=== PATIENT | male | born 1970 | race Two or more races ===

== ENCOUNTER 2020-03-25 20:58 | Inpatient (IN) | payer MEDICAID ==
[~2020-03-25] VITALS: Ht 172.7 cm; Wt 140.8 kg
--- NOTE | 2020-03-25 21:35 | NUR ---
PT REPORTS SWELLING TO L FOOT X 1 WEEK. HAD A TELEPHONE CONSULT WITH HIS PCP AND WAS PRESCRIBED INDOMETHACIN & CLINDAMYCIN FOR SUSPECTED GOUT. SWELLING HAS SINCE GOTTEN WORSE. PT NOTED TO BE SOB WITH EXERTION, TACHYPNEIC. STATES, "I'M ALWAYS SOB BECAUSE OF MY WEIGHT." DENIES HX OF PE OR DVT. STATES HE'S HOPING TO GET A BASTRIC BYPASS SURGERY. HX INSULIN DEPENDENT DM.
[2020-03-25] MEDS ORDERED: ASPI-515 PO (21:36)
[2020-03-25] MEDS ORDERED: LISINOPRIL (21:36)
[2020-03-25] MEDS ORDERED: METF500T27 PO (21:36)
[2020-03-25] MEDS ORDERED: LISINOPRIL PO (21:37)
[2020-03-25] MEDS ORDERED: INSU100I34 SC (21:42)
[2020-03-25] MEDS ORDERED: SIMVASTATIN PO (21:42)
[2020-03-25] MEDS ORDERED: SODIUM CHLORIDE 0.9% 1,000ML IVBOLUS ONE (22:00)
[2020-03-25] MEDS ORDERED: SODIUM CHLORIDE FLUSH 10ML SYR IVF ONE (22:00)
[2020-03-25] MEDS ORDERED: ACETAMINOPHEN 325 MG TABLET PO ONE (22:00)
--- NOTE | 2020-03-25 22:05 | NUR ---
REPORT FROM GAETANO MANRIQUE. PT TAKEN TO ULTRASOUND AT THIS TIME.
[2020-03-25] MEDS ORDERED: AMPICILLIN/SULBACTAM 3 GM in SODIUM CHLORIDE 0.9% 100 ML IV ONE (23:00)
[2020-03-25] MEDS ORDERED: VANCOMYCIN PER PHARMACY MC PRN (23:00)
[2020-03-25 23:03] LABS: BASOPHILS % (AUTO) 1 % (0-1); EOSINOPHILS % (AUTO) 3 % (1-7); LYMPHOCYTES % (AUTO) 20 % (22-44); MEAN CORPUSCULAR HEMOGLOBIN 30.6 pg (27.5-34.5); MEAN PLATELET VOLUME 8.9 fL (7.4-10.4); MONOCYTES % (AUTO) 10 % (2-9); NEUTROPHILS % (AUTO) 67 % (42-75); PLATELET COUNT 278 x10^3/uL (130-400); RED BLOOD COUNT 4.39 x10^6/uL (4.38-5.82); RED CELL DISTRIBUTION WIDTH 13.6 % (9.4-14.8)
[2020-03-25 23:07] LABS: MD NO
[2020-03-25 23:08] LABS: HCT (SEDRATE) 39.8 % (39.2-51.8)
[2020-03-25 23:12] LABS: ALANINE AMINOTRANSFERASE 22 U/L (12-78); ANION GAP 3 mmol/L (5-15); CALCIUM 8.1 mg/dL (8.5-10.1); CHLORIDE 103 mmol/L (98-107); CREATININE 1.05 mg/dL (0.7-1.3)
[2020-03-25 23:19] LABS: ALKALINE PHOSPHATASE 76 U/L (45-117); BILIRUBIN,TOTAL 0.2 mg/dL (0.2-1.0); TOTAL PROTEIN 7.8 g/dL (6.4-8.2); TROPONIN I < 0.015 ng/mL (0.000-0.045)
[2020-03-25] MEDS ORDERED: ACETAMINOPHEN 325 MG TABLET ONE (23:22)
--- NOTE | 2020-03-25 23:53 | NUR ---
PT UPDATED ON PLAN OF CARE. VERBALIZES UNDERSTANDING, DENIES ANY FURTHER NEEDS OR CONCERNS AT THIS TIME. CALL LIGHT IN REACH.
--- NOTE | 2020-03-26 00:19 | NUR ---
PT UP TO RESTROOM, REQUIRES NO ASSISTANCE. GAIT STRONG AND STEADY. DENIES ANY FURTHER NEEDS OR CONCERNS, CALL LIGHT IN REACH, REGISTRATION AT BEDSIDE AT THIS TIME.
--- NOTE | 2020-03-26 00:38 | NUR ---
REPORT TO ADILSON BRASHER RN. PT UPDATED ON PLAN OF CARE. DENIES ANY NEEDS, AWAITING TRANSPORT AT THIS TIME, CALL LIGHT IN REACH
[2020-03-26] MEDS ORDERED: ONDANSETRON 2MG/ML, 2ML IVPush PRN (01:00)
[2020-03-26] MEDS ORDERED: GABAPENTIN 300 MG CAPSULE PO PRN (01:00)
[2020-03-26] MEDS ORDERED: VANCOMYCIN 2,800 MG in SODIUM CHLORIDE 0.9% 500 ML IV ONE (01:00)
[2020-03-26] MEDS ORDERED: VANCOMYCIN PER PHARMACY MC PRN (01:00)
[2020-03-26] MEDS ORDERED: hydrALAzine 20 MG/ML, 1ML IVPush PRN (01:00)
[2020-03-26 01:19] VITALS: BP 127/67
[2020-03-26] MEDS ORDERED: PHARMACOKINETIC MONITORING MC PRN (01:30)
[2020-03-26] MEDS: INSULIN LISPRO 100 UNITS/ML, PEN SQ-INSULIN SCH ×5 (02:08→20:15)
[2020-03-26] MEDS: ENOXAPARIN 30 MG/0.3 ML SQ SCH ×2 (02:08→13:56)
[2020-03-26] MEDS: INSULIN GLARGINE 100 UNITS/ML, PEN SQ-INSULIN SCH ×3 (02:09→20:14)
[2020-03-26] MEDS: AMPICILLIN/SULBACTAM 3 GM in SODIUM CHLORIDE 0.9% 100 ML IV SCH ×3 (04:47→18:02)
[2020-03-26] MEDS: LISINOPRIL 5 MG TABLET PO SCH (08:00)
[2020-03-26] MEDS: SENNA/DOCUSATE TABLET PO SCH (08:00)
[2020-03-26 08:04] VITALS: BP 120/82
[2020-03-26] MEDS ORDERED: VANCOMYCIN 2,800 MG in SODIUM CHLORIDE 0.9% 500 ML IV SCH (13:00)
[2020-03-26] MEDS: VANCOMYCIN 2,200 MG in SODIUM CHLORIDE 0.9% 500 ML IV SCH (14:05)
[2020-03-26 14:10] VITALS: BP 112/75
[2020-03-26] MEDS ORDERED: GADOTERATE 10 MMOL/20 ML VIAL ONE (16:00)
[2020-03-26] MEDS ORDERED: GADOTERATE 5 MMOL/10 ML VIAL ONE (16:00)
[2020-03-26 20:09] VITALS: BP 129/78
[2020-03-26] MEDS: ATORVASTATIN 40 MG TABLET PO SCH (20:13)
[2020-03-27] MEDS: ENOXAPARIN 30 MG/0.3 ML SQ SCH ×2 (00:55→14:52)
[2020-03-27] MEDS: AMPICILLIN/SULBACTAM 3 GM in SODIUM CHLORIDE 0.9% 100 ML IV SCH ×4 (00:55→17:56)
[2020-03-27 01:01] VITALS: BP 122/78
[2020-03-27] MEDS: VANCOMYCIN 2,200 MG in SODIUM CHLORIDE 0.9% 500 ML IV SCH ×2 (02:28→15:01)
[2020-03-27 06:29] VITALS: BP 119/74
[2020-03-27] MEDS: INSULIN LISPRO 100 UNITS/ML, PEN SQ-INSULIN SCH ×4 (07:00→20:13)
[2020-03-27] MEDS: SENNA/DOCUSATE TABLET PO SCH (07:28)
[2020-03-27] MEDS: LISINOPRIL 5 MG TABLET PO SCH (07:28)
[2020-03-27] MEDS: INSULIN GLARGINE 100 UNITS/ML, PEN SQ-INSULIN SCH ×2 (07:29→20:13)
[2020-03-27 14:51] VITALS: BP 117/77
[2020-03-27] MEDS: ATORVASTATIN 40 MG TABLET PO SCH (20:12)
[2020-03-27 20:30] VITALS: BP 156/85
[2020-03-27] MEDS: MELATONIN 5 MG TABLET PO PRN (23:03)
[2020-03-28] MEDS: AMPICILLIN/SULBACTAM 3 GM in SODIUM CHLORIDE 0.9% 100 ML IV SCH ×4 (00:19→19:14)
[2020-03-28 01:01] VITALS: BP 114/73
[2020-03-28] MEDS: VANCOMYCIN 2,200 MG in SODIUM CHLORIDE 0.9% 500 ML IV SCH ×2 (04:20→16:23)
[2020-03-28] MEDS: ENOXAPARIN 30 MG/0.3 ML SQ SCH ×2 (04:20→16:23)
[2020-03-28 06:26] VITALS: BP 117/77
[2020-03-28] MEDS: INSULIN LISPRO 100 UNITS/ML, PEN SQ-INSULIN SCH ×4 (07:00→20:29)
[2020-03-28] MEDS: INSULIN GLARGINE 100 UNITS/ML, PEN SQ-INSULIN SCH ×2 (07:52→20:28)
[2020-03-28] MEDS: SENNA/DOCUSATE TABLET PO SCH (07:53)
[2020-03-28] MEDS: LISINOPRIL 5 MG TABLET PO SCH (07:53)
[2020-03-28 13:55] VITALS: BP 131/82
[2020-03-28] MEDS: ACETAMINOPHEN 325 MG TABLET PO PRN (16:28)
[2020-03-28 19:30] VITALS: BP 143/81
[2020-03-28] MEDS: ATORVASTATIN 40 MG TABLET PO SCH (20:28)
[2020-03-29 00:49] VITALS: BP 123/80
[2020-03-29] MEDS: AMPICILLIN/SULBACTAM 3 GM in SODIUM CHLORIDE 0.9% 100 ML IV SCH ×2 (01:06→07:50)
[2020-03-29] MEDS: VANCOMYCIN 2,200 MG in SODIUM CHLORIDE 0.9% 500 ML IV SCH (04:18)
[2020-03-29] MEDS: ENOXAPARIN 30 MG/0.3 ML SQ SCH ×2 (04:18→16:00)
[2020-03-29] MEDS: ACETAMINOPHEN 325 MG TABLET PO PRN (04:36)
[2020-03-29] MEDS: INSULIN LISPRO 100 UNITS/ML, PEN SQ-INSULIN SCH ×4 (07:00→20:37)
[2020-03-29 07:47] VITALS: BP 131/89
[2020-03-29] MEDS: SENNA/DOCUSATE TABLET PO SCH (07:49)
[2020-03-29] MEDS: INSULIN GLARGINE 100 UNITS/ML, PEN SQ-INSULIN SCH ×2 (07:49→20:37)
[2020-03-29] MEDS: LISINOPRIL 5 MG TABLET PO SCH (07:50)
[2020-03-29 12:16] VITALS: BP 142/89
[2020-03-29] MEDS: AMOXICILLIN/CLAV 875-125MG TABLET PO SCH (20:36)
[2020-03-29] MEDS: ATORVASTATIN 40 MG TABLET PO SCH (20:36)
[2020-03-29 20:39] VITALS: BP 142/83
[2020-03-29] MEDS: MELATONIN 5 MG TABLET PO PRN (22:28)
[2020-03-30 01:47] VITALS: BP 115/68
[2020-03-30] MEDS: ENOXAPARIN 30 MG/0.3 ML SQ SCH (04:43)
[2020-03-30 05:21] LABS: HCT (SEDRATE) 38.2 % (39.2-51.8)
[2020-03-30 05:30] LABS: BASOPHILS % (AUTO) 0 % (0-1); EOSINOPHILS % (AUTO) 3 % (1-7); LYMPHOCYTES % (AUTO) 25 % (22-44); MEAN CORPUSCULAR HEMOGLOBIN 30.6 pg (27.5-34.5); MEAN CORPUSCULAR HGB CONC 33.9 g/dL (33.2-36.2); MEAN PLATELET VOLUME 8.3 fL (7.4-10.4); MONOCYTES % (AUTO) 10 % (2-9); NEUTROPHILS % (AUTO) 62 % (42-75); PLATELET COUNT 294 x10^3/uL (130-400); RED BLOOD COUNT 4.25 x10^6/uL (4.38-5.82); RED CELL DISTRIBUTION WIDTH 13.6 % (9.4-14.8)
[2020-03-30 05:50] LABS: MD NO
[2020-03-30 05:55] LABS: ANION GAP 6 mmol/L (5-15); CALCIUM 8.5 mg/dL (8.5-10.1); CHLORIDE 104 mmol/L (98-107); CREATININE 0.85 mg/dL (0.7-1.3)
[2020-03-30 07:14] VITALS: BP 121/79
[2020-03-30] MEDS: INSULIN LISPRO 100 UNITS/ML, PEN SQ-INSULIN SCH ×2 (07:36→11:48)
[2020-03-30] MEDS: SENNA/DOCUSATE TABLET PO SCH (09:17)
[2020-03-30] MEDS: LISINOPRIL 5 MG TABLET PO SCH (09:17)
[2020-03-30] MEDS: AMOXICILLIN/CLAV 875-125MG TABLET PO SCH (09:17)
[2020-03-30] MEDS: INSULIN GLARGINE 100 UNITS/ML, PEN SQ-INSULIN SCH (09:24)
[2020-03-30] MEDS ORDERED: AMOX1TAB12 PO (09:26)
[2020-03-30] MEDS ORDERED: ATOR40TA78 PO (09:26)
[2020-03-30] MEDS ORDERED: GABA300C PO (09:26)
== END 2020-03-30 15:17 | disposition home or self-care (01) | DRG 603 ==
LOC: ED 03-26 00:20 → EDIP 03-26 00:43 → 3N 03-26 01:01 → DCLOUNGE 03-30 14:43
PROVIDERS: ADMIT Family Medicine; ATTEND Family Medicine
DX: L03.116 Cellulitis of left lower limb (principal); E66.2 Morbid (severe) obesity with alveolar hypoventilation; Z68.42 Body mass index [BMI] 45.0-49.9, adult; E87.1 Hypo-osmolality and hyponatremia; E11.40 Type 2 diabetes mellitus with diabetic neuropathy, unspecified; E11.621 Type 2 diabetes mellitus with foot ulcer; E11.65 Type 2 diabetes mellitus with hyperglycemia; E78.5 Hyperlipidemia, unspecified; I11.9 Hypertensive heart disease without heart failure; L97.519 Non-pressure chronic ulcer of other part of right foot with unspecified severity; M10.9 Gout, unspecified; M84.375A Stress fracture, left foot, initial encounter for fracture; R60.0 Localized edema; R70.0 Elevated erythrocyte sedimentation rate; R79.82 Elevated C-reactive protein (CRP); Z79.4 Long term (current) use of insulin; Z83.3 Family history of diabetes mellitus; Z72.89 Other problems related to lifestyle
CPT/HCPCS: 36415; 73630; 84145; 96374; 96375; 99285; A9575; 71045; 80048; 80053; 80202; 82330; 82962; 83036; 83605; 83880; 84484; 85025; 85651; 86140; 87040; 93005; G0378; J0295; J1650; J3370; J1815; J7030; J7040

== ENCOUNTER 2020-10-12 19:38 | Emergency (ER) | payer MEDICAID ==
[~2020-10-12] VITALS: Ht 172.7 cm; Wt 141.8 kg
[~2020-10-12 19:38] MED LIST: AMOX1TAB12 PO; ASPI-963 PO; ATOR40TA78 PO; GABA300C PO; INSU100I34 SC; LISINOPRIL; LISINOPRIL PO; METF500T27 PO; SIMVASTATIN PO
[2020-10-12 19:46] VITALS: BP 107/71
[2020-10-12 21:22] LABS: BASOPHILS % (AUTO) 1 % (0-1); EOSINOPHILS % (AUTO) 2 % (1-7); LYMPHOCYTES % (AUTO) 23 % (22-44); MEAN PLATELET VOLUME 8.3 fL (7.4-10.4); MONOCYTES % (AUTO) 9 % (2-9); NEUTROPHILS % (AUTO) 65 % (42-75); PLATELET COUNT 459 x10^3/uL (130-400); RED CELL DISTRIBUTION WIDTH 14.7 % (9.4-14.8)
[2020-10-12 21:25] LABS: ANION GAP 9 mmol/L (5-15); CALCIUM 8.7 mg/dL (8.5-10.1); CHLORIDE 97 mmol/L (98-107); CREATININE 0.95 mg/dL (0.7-1.3)
[2020-10-12 21:26] LABS: HCT (SEDRATE) 39.1 % (39.2-51.8)
== END 2020-10-12 22:38 | disposition left against medical advice (07) ==
LOC: ED 20:00
DX: S91.302A Unspecified open wound, left foot, initial encounter (principal); X58.XXXA Exposure to other specified factors, initial encounter; Y93.89 Activity, other specified; Y92.89 Other specified places as the place of occurrence of the external cause; Y99.8 Other external cause status
CPT/HCPCS: 36415; 80048; 85025; 85651; 86140; 99284

== ENCOUNTER 2020-10-17 06:54 | Inpatient (IN) | payer MEDICAID ==
[~2020-10-17] VITALS: Ht 172.7 cm; Wt 149.7 kg
--- NOTE | 2020-10-17 07:17 | NUR ---
PT walked back from triage with chief complaint of worsening left foot wound for past month. Hx DM. Pt reports abx from doctor but unable to remember which one.
[2020-10-17] MEDS ORDERED: VANCOMYCIN 2,500 MG in SODIUM CHLORIDE 0.9% 500 ML IV ONE (08:00)
[2020-10-17] MEDS ORDERED: PIPERACILLIN/TAZO 4.5 GM in SODIUM CHLORIDE 0.9% 100 ML IVPB ONE (08:00)
[2020-10-17] MEDS ORDERED: VANCOMYCIN PER PHARMACY MC ONE (08:00)
[2020-10-17] MEDS ORDERED: SODIUM CHLORIDE FLUSH 10ML SYR IVF ONE (08:00)
[2020-10-17 08:26] LABS: BASOPHILS % (AUTO) 1 % (0-1); EOSINOPHILS % (AUTO) 1 % (1-7); LYMPHOCYTES % (AUTO) 19 % (22-44); MONOCYTES % (AUTO) 9 % (2-9); NEUTROPHILS % (AUTO) 70 % (42-75); PLATELET COUNT 421 x10^3/uL (130-400); RED BLOOD COUNT 4.23 x10^6/uL (4.38-5.82); RED CELL DISTRIBUTION WIDTH 14.5 % (9.4-14.8)
--- NOTE | 2020-10-17 08:35 | NUR ---
PT unable to provide urine sample. Pt back resting in bed, call light in reach
[2020-10-17 08:36] LABS: ALANINE AMINOTRANSFERASE 12 U/L (12-78); ALBUMIN 2.4 g/dL (3.4-5.0); ANION GAP 6 mmol/L (5-15); CALCIUM 8.4 mg/dL (8.5-10.1); CHLORIDE 97 mmol/L (98-107); CREATININE 0.87 mg/dL (0.7-1.3)
[2020-10-17 08:39] LABS: ALKALINE PHOSPHATASE 66 U/L (45-117); BILIRUBIN,TOTAL 0.2 mg/dL (0.2-1.0); TOTAL PROTEIN 8.8 g/dL (6.4-8.2)
[2020-10-17 09:16] LABS: MICROSCOPIC AUTO
--- NOTE | 2020-10-17 10:20 | NUR ---
PT RESTING IN BED, CALL LIGHT IN REACH
[2020-10-17] MEDS ORDERED: SODIUM CHLORIDE FLUSH 10ML SYR IVF PRN (12:00)
[2020-10-17] MEDS ORDERED: ONDANSETRON 2MG/ML, 2ML IVPush PRN (13:30)
[2020-10-17] MEDS ORDERED: morphine SULFATE 10 MG/ML, 1ML IVPush PRN (13:30)
[2020-10-17] MEDS ORDERED: BISACODYL 10 MG SUPP PR PRN (13:30)
[2020-10-17] MEDS ORDERED: hydrALAzine 20 MG/ML, 1ML IVPush PRN (13:30)
[2020-10-17] MEDS ORDERED: PROMETHAZINE 25 MG/ML, 1ML IM PRN (13:30)
[2020-10-17] MEDS ORDERED: ONDANSETRON ODT 4 MG PO PRN (13:30)
[2020-10-17] MEDS ORDERED: ENOXAPARIN 40 MG/0.4 ML ONE (14:21)
[2020-10-17] MEDS: ENOXAPARIN 40 MG/0.4 ML SQ SCH (14:22)
--- NOTE | 2020-10-17 16:04 | NUR ---
Report called to Mariella SALTER
[2020-10-17] MEDS ORDERED: VANCOMYCIN PER PHARMACY MC PRN (17:00)
[2020-10-17] MEDS: PIPERACILLIN/TAZO 3.375 GM in DEXTROSE 5% 50 ML IV SCH (17:14)
[2020-10-17] MEDS ORDERED: PHARMACOKINETIC CONSULTATION MC ONE (17:30)
[2020-10-17] MEDS ORDERED: PHARMACOKINETIC MONITORING MC PRN (17:30)
[2020-10-17 19:19] VITALS: BP 104/72
[2020-10-17] MEDS: VANCOMYCIN 2,100 MG in SODIUM CHLORIDE 0.9% 500 ML IV SCH (21:15)
[2020-10-17] MEDS ORDERED: GABAPENTIN 300 MG CAPSULE PO PRN (22:00)
[2020-10-17] MEDS: INSULIN LISPRO 100 UNITS/ML, PEN SQ-INSULIN SCH (22:17)
[2020-10-17] MEDS: ATORVASTATIN 40 MG TABLET PO SCH (22:18)
[2020-10-17] MEDS ORDERED: MELATONIN 5 MG TABLET PO SCH (22:30)
[2020-10-17] MEDS: MELATONIN 5 MG TABLET PO PRN (22:33)
[2020-10-18] MEDS: PIPERACILLIN/TAZO 3.375 GM in DEXTROSE 5% 50 ML IV SCH ×4 (01:16→22:34)
[2020-10-18 02:25] VITALS: BP 114/73
[2020-10-18 06:14] LABS: HCT (SEDRATE) 34.8 % (39.2-51.8)
[2020-10-18 06:21] LABS: BASOPHILS % (AUTO) 1 % (0-1); EOSINOPHILS % (AUTO) 2 % (1-7); LYMPHOCYTES % (AUTO) 22 % (22-44); MEAN CORPUSCULAR HEMOGLOBIN 29.6 pg (27.5-34.5); MEAN CORPUSCULAR HGB CONC 33.5 g/dL (33.2-36.2); MEAN PLATELET VOLUME 8.2 fL (7.4-10.4); MONOCYTES % (AUTO) 9 % (2-9); NEUTROPHILS % (AUTO) 66 % (42-75); PLATELET COUNT 364 x10^3/uL (130-400); RED CELL DISTRIBUTION WIDTH 14.7 % (9.4-14.8)
[2020-10-18 06:26] LABS: ALBUMIN 2.1 g/dL (3.4-5.0); ANION GAP 8 mmol/L (5-15); CALCIUM 8.4 mg/dL (8.5-10.1); CHLORIDE 97 mmol/L (98-107)
[2020-10-18 06:30] VITALS: BP 128/83
[2020-10-18 06:38] LABS: ALANINE AMINOTRANSFERASE 13 U/L (12-78); ALKALINE PHOSPHATASE 58 U/L (45-117); BILIRUBIN,TOTAL 0.3 mg/dL (0.2-1.0); CHOL/HDL RATIO 4.1; CHOLESTEROL, TOTAL 149 mg/dL (140-239); CREATININE 0.89 mg/dL (0.7-1.3); HDL CHOL % 24 % (26-37); HDL CHOLESTEROL (DIRECT) 36 mg/dL (40-60); LDL CHOLESTEROL,CALCULATED 96 mg/dL (54-169); LDL/HDL RATIO 2.7 (0.5-3.0); TOTAL PROTEIN 8.3 g/dL (6.4-8.2); TRIGLYCERIDES 87 mg/dL (50-200); VLDL CHOLESTEROL 17 mg/dL (0-25)
[2020-10-18] MEDS: INSULIN LISPRO 100 UNITS/ML, PEN SQ-INSULIN SCH ×4 (08:20→20:57)
[2020-10-18] MEDS: ASPIRIN 81 MG TABLET EC PO SCH (08:20)
[2020-10-18] MEDS ORDERED: GADOTERATE 7.5 MMOL/15ML SYR ONE (08:54)
[2020-10-18] MEDS: VANCOMYCIN 2,100 MG in SODIUM CHLORIDE 0.9% 500 ML IV SCH ×2 (12:12→23:28)
[2020-10-18] MEDS: INSULIN GLARGINE 100 UNITS/ML, PEN SQ-INSULIN SCH (15:18)
[2020-10-18] MEDS: ENOXAPARIN 40 MG/0.4 ML SQ SCH (17:17)
[2020-10-18 19:10] VITALS: BP 111/77
[2020-10-18] MEDS: ATORVASTATIN 40 MG TABLET PO SCH (20:56)
[2020-10-18] MEDS: MELATONIN 5 MG TABLET PO PRN (22:34)
[2020-10-19 00:17] VITALS: BP 128/79
[2020-10-19] MEDS: PIPERACILLIN/TAZO 3.375 GM in DEXTROSE 5% 50 ML IV SCH ×4 (04:30→23:25)
[2020-10-19 06:09] LABS: BASOPHILS % (AUTO) 0 % (0-1); EOSINOPHILS % (AUTO) 2 % (1-7); LYMPHOCYTES % (AUTO) 25 % (22-44); MEAN CORPUSCULAR HEMOGLOBIN 29.4 pg (27.5-34.5); MEAN CORPUSCULAR HGB CONC 33.4 g/dL (33.2-36.2); MONOCYTES % (AUTO) 10 % (2-9); NEUTROPHILS % (AUTO) 63 % (42-75); PLATELET COUNT 360 x10^3/uL (130-400); RED BLOOD COUNT 3.74 x10^6/uL (4.38-5.82); RED CELL DISTRIBUTION WIDTH 14.7 % (9.4-14.8)
[2020-10-19 06:19] LABS: CHLORIDE 99 mmol/L (98-107)
[2020-10-19 06:31] LABS: ANION GAP 7 mmol/L (5-15); CALCIUM 8.4 mg/dL (8.5-10.1); CREATININE 0.84 mg/dL (0.7-1.3)
[2020-10-19 07:35] VITALS: BP 108/73
[2020-10-19] MEDS: ASPIRIN 81 MG TABLET EC PO SCH (08:35)
[2020-10-19] MEDS: INSULIN LISPRO 100 UNITS/ML, PEN SQ-INSULIN SCH ×4 (08:41→21:00)
[2020-10-19] MEDS: INSULIN GLARGINE 100 UNITS/ML, PEN SQ-INSULIN SCH (08:43)
[2020-10-19 12:26] VITALS: BP 125/78
[2020-10-19] MEDS: ENOXAPARIN 40 MG/0.4 ML SQ SCH (17:05)
[2020-10-19] MEDS: VANCOMYCIN 2,000 MG in SODIUM CHLORIDE 0.9% 500 ML IV SCH (18:03)
[2020-10-19] MEDS ORDERED: BUPIVACAINE/PF 0.25% ONE (18:30)
[2020-10-19] MEDS ORDERED: LIDOCAINE/PF 1%, 30ML ONE (18:31)
[2020-10-19] MEDS ORDERED: MIDAZOLAM 1 MG/ML, 2ML ONE (19:20)
[2020-10-19] MEDS ORDERED: FENTANYL PF 250 MCG/5ML ONE (19:21)
[2020-10-19] MEDS ORDERED: SUCCINYLCHOLINE 20 MG/ML, 10ML ONE (19:52)
[2020-10-19] MEDS ORDERED: PROPOFOL 10 MG/ML, 20ML ONE (19:52)
[2020-10-19] MEDS ORDERED: ONDANSETRON 2MG/ML, 2ML ONE (19:52)
[2020-10-19] MEDS ORDERED: ONDANSETRON 2MG/ML, 2ML IVPush PRN (20:00)
[2020-10-19] MEDS ORDERED: MEPERIDINE/PF 25MG/0.5ML IVPush PRN (20:00)
[2020-10-19] MEDS ORDERED: LABETALOL 5MG/ML, 20ML IV PRN (20:00)
[2020-10-19] MEDS ORDERED: HYDROmorphone 1 MG/ML, 1ML INJ IVPush PRN (20:00)
[2020-10-19] MEDS ORDERED: hydrALAzine 20 MG/ML, 1ML IV PRN (20:00)
[2020-10-19] MEDS ORDERED: DIAZEPAM 5 MG/ML, 2ML IVPush PRN (20:00)
[2020-10-19] MEDS ORDERED: OXYcodone 5 MG/5 ML ORAL.SOL UDC PO PRN (20:00)
[2020-10-19] MEDS ORDERED: FENTANYL PF 100 MCG/2ML IV PRN (20:00)
[2020-10-19 21:10] VITALS: BP 121/80
[2020-10-19] MEDS: ATORVASTATIN 40 MG TABLET PO SCH (21:54)
[2020-10-19] MEDS: MELATONIN 5 MG TABLET PO PRN (23:25)
[2020-10-20 00:30] VITALS: BP 150/88
[2020-10-20 03:52] VITALS: BP 111/73
[2020-10-20] MEDS: PIPERACILLIN/TAZO 3.375 GM in DEXTROSE 5% 50 ML IV SCH ×4 (05:31→23:31)
[2020-10-20] MEDS: ENOXAPARIN 40 MG/0.4 ML SQ SCH ×2 (05:32→16:53)
[2020-10-20] MEDS: ASPIRIN 81 MG TABLET EC PO SCH (08:20)
[2020-10-20] MEDS: INSULIN LISPRO 100 UNITS/ML, PEN SQ-INSULIN SCH ×4 (08:20→22:07)
[2020-10-20] MEDS: INSULIN GLARGINE 100 UNITS/ML, PEN SQ-INSULIN SCH (08:21)
[2020-10-20 10:16] VITALS: BP 127/80
[2020-10-20] MEDS: VANCOMYCIN 2,000 MG in SODIUM CHLORIDE 0.9% 500 ML IV SCH (11:28)
[2020-10-20 14:01] VITALS: BP 119/76
[2020-10-20 19:16] VITALS: BP 126/83
[2020-10-20] MEDS: ATORVASTATIN 40 MG TABLET PO SCH (22:07)
[2020-10-20] MEDS: MELATONIN 5 MG TABLET PO PRN (23:32)
[2020-10-21 00:54] VITALS: BP 99/61
[2020-10-21] MEDS: PIPERACILLIN/TAZO 3.375 GM in DEXTROSE 5% 50 ML IV SCH (05:18)
[2020-10-21] MEDS: VANCOMYCIN 2,000 MG in SODIUM CHLORIDE 0.9% 500 ML IV SCH (06:01)
[2020-10-21 06:24] LABS: CHLORIDE 103 mmol/L (98-107)
[2020-10-21] MEDS: ENOXAPARIN 40 MG/0.4 ML SQ SCH ×2 (06:24→18:19)
[2020-10-21 06:31] LABS: ANION GAP 5 mmol/L (5-15); CALCIUM 8.3 mg/dL (8.5-10.1); CREATININE 1.66 mg/dL (0.7-1.3); VANCOMYCIN,TROUGH 20.1 mcg/mL (5.0-10.0)
[2020-10-21 09:35] VITALS: BP 137/87
[2020-10-21] MEDS: ASPIRIN 81 MG TABLET EC PO SCH (09:38)
[2020-10-21] MEDS: INSULIN LISPRO 100 UNITS/ML, PEN SQ-INSULIN SCH ×4 (09:38→20:52)
[2020-10-21] MEDS: INSULIN GLARGINE 100 UNITS/ML, PEN SQ-INSULIN SCH (09:39)
[2020-10-21] MEDS ORDERED: ERTAPENEM 1 GM in SODIUM CHLORIDE 0.9% 50 ML IV SCH (10:00)
[2020-10-21] MEDS ORDERED: DAPTOMYCIN 900 MG in SODIUM CHLORIDE 0.9% 100 ML IVPB SCH (14:00)
[2020-10-21 15:54] VITALS: BP 146/93
[2020-10-21 20:44] VITALS: BP 140/66
[2020-10-21] MEDS: MELATONIN 5 MG TABLET PO PRN (22:45)
[2020-10-22 02:45] VITALS: BP 118/81
[2020-10-22 06:10] LABS: ANION GAP 5 mmol/L (5-15); CALCIUM 8.5 mg/dL (8.5-10.1); CHLORIDE 104 mmol/L (98-107); CREATININE 1.41 mg/dL (0.7-1.3)
[2020-10-22] MEDS: ENOXAPARIN 40 MG/0.4 ML SQ SCH ×2 (06:37→18:24)
[2020-10-22] MEDS: INSULIN LISPRO 100 UNITS/ML, PEN SQ-INSULIN SCH ×4 (07:00→21:16)
[2020-10-22 07:25] VITALS: BP 126/75
[2020-10-22] MEDS: INSULIN GLARGINE 100 UNITS/ML, PEN SQ-INSULIN SCH (08:37)
[2020-10-22] MEDS: ASPIRIN 81 MG TABLET EC PO SCH (08:37)
[2020-10-22] MEDS: AMPICILLIN/SULBACTAM 3 GM in SODIUM CHLORIDE 0.9% 100 ML IV SCH ×3 (10:50→22:24)
[2020-10-22 13:06] VITALS: BP 115/69
[2020-10-22 20:16] VITALS: BP 122/79
[2020-10-22] MEDS: MELATONIN 5 MG TABLET PO PRN (22:23)
[2020-10-23 03:27] VITALS: BP 115/71
[2020-10-23] MEDS: AMPICILLIN/SULBACTAM 3 GM in SODIUM CHLORIDE 0.9% 100 ML IV SCH ×4 (03:59→23:20)
[2020-10-23 05:53] LABS: BASOPHILS % (AUTO) 1 % (0-1); EOSINOPHILS % (AUTO) 3 % (1-7); LYMPHOCYTES % (AUTO) 19 % (22-44); MEAN CORPUSCULAR HEMOGLOBIN 29.4 pg (27.5-34.5); MEAN CORPUSCULAR HGB CONC 33.3 g/dL (33.2-36.2); MEAN PLATELET VOLUME 7.7 fL (7.4-10.4); MONOCYTES % (AUTO) 10 % (2-9); NEUTROPHILS % (AUTO) 67 % (42-75); PLATELET COUNT 313 x10^3/uL (130-400); RED BLOOD COUNT 3.91 x10^6/uL (4.38-5.82); RED CELL DISTRIBUTION WIDTH 15.1 % (9.4-14.8)
[2020-10-23 05:54] LABS: HCT (SEDRATE) 34.1 % (39.2-51.8)
[2020-10-23 06:10] LABS: CHLORIDE 102 mmol/L (98-107)
[2020-10-23 06:27] LABS: ALANINE AMINOTRANSFERASE 18 U/L (12-78); ALBUMIN 2.2 g/dL (3.4-5.0); ALKALINE PHOSPHATASE 52 U/L (45-117); ANION GAP 6 mmol/L (5-15); BILIRUBIN,TOTAL 0.3 mg/dL (0.2-1.0); CALCIUM 8.8 mg/dL (8.5-10.1); CREATINE KINASE, TOTAL 40 U/L (39-308); CREATININE 1.38 mg/dL (0.7-1.3); TOTAL PROTEIN 8.4 g/dL (6.4-8.2)
[2020-10-23] MEDS: ENOXAPARIN 40 MG/0.4 ML SQ SCH ×2 (06:30→18:08)
[2020-10-23 07:31] VITALS: BP 118/73
[2020-10-23] MEDS: ASPIRIN 81 MG TABLET EC PO SCH (08:44)
[2020-10-23] MEDS: ACETAMINOPHEN 325 MG TABLET PO PRN (08:44)
[2020-10-23] MEDS: INSULIN GLARGINE 100 UNITS/ML, PEN SQ-INSULIN SCH (08:45)
[2020-10-23] MEDS: INSULIN LISPRO 100 UNITS/ML, PEN SQ-INSULIN SCH ×4 (08:46→23:21)
[2020-10-23 13:45] VITALS: BP 135/80
[2020-10-23 18:39] VITALS: BP 137/88
[2020-10-23] MEDS: MELATONIN 5 MG TABLET PO PRN (23:28)
[2020-10-24 01:05] VITALS: BP 110/68
[2020-10-24] MEDS: AMPICILLIN/SULBACTAM 3 GM in SODIUM CHLORIDE 0.9% 100 ML IV SCH ×3 (05:20→18:21)
[2020-10-24] MEDS: ENOXAPARIN 40 MG/0.4 ML SQ SCH ×3 (05:21→20:11)
[2020-10-24] MEDS: ACETAMINOPHEN 325 MG TABLET PO PRN (05:30)
[2020-10-24 07:16] VITALS: BP 101/65
[2020-10-24] MEDS: INSULIN GLARGINE 100 UNITS/ML, PEN SQ-INSULIN SCH (08:28)
[2020-10-24] MEDS: ASPIRIN 81 MG TABLET EC PO SCH (08:29)
[2020-10-24] MEDS: INSULIN LISPRO 100 UNITS/ML, PEN SQ-INSULIN SCH ×4 (08:29→20:24)
[2020-10-24 13:46] VITALS: BP 125/80
[2020-10-24 18:35] VITALS: BP 123/80
[2020-10-25] MEDS: AMPICILLIN/SULBACTAM 3 GM in SODIUM CHLORIDE 0.9% 100 ML IV SCH ×5 (00:13→22:39)
[2020-10-25 03:37] VITALS: BP 109/62
[2020-10-25 05:38] LABS: BASOPHILS % (AUTO) 1 % (0-1); EOSINOPHILS % (AUTO) 3 % (1-7); LYMPHOCYTES % (AUTO) 21 % (22-44); MEAN CORPUSCULAR HEMOGLOBIN 29.8 pg (27.5-34.5); MEAN CORPUSCULAR HGB CONC 33.8 g/dL (33.2-36.2); MONOCYTES % (AUTO) 11 % (2-9); NEUTROPHILS % (AUTO) 65 % (42-75); PLATELET COUNT 320 x10^3/uL (130-400); RED CELL DISTRIBUTION WIDTH 14.7 % (9.4-14.8)
[2020-10-25 05:44] LABS: ANION GAP 6 mmol/L (5-15); CALCIUM 8.6 mg/dL (8.5-10.1); CHLORIDE 105 mmol/L (98-107); CREATININE 1.49 mg/dL (0.7-1.3)
[2020-10-25 08:10] VITALS: BP 116/83
[2020-10-25] MEDS: ASPIRIN 81 MG TABLET EC PO SCH (09:00)
[2020-10-25] MEDS: INSULIN LISPRO 100 UNITS/ML, PEN SQ-INSULIN SCH ×4 (09:37→22:31)
[2020-10-25] MEDS: INSULIN GLARGINE 100 UNITS/ML, PEN SQ-INSULIN SCH (09:38)
[2020-10-25] MEDS ORDERED: FENTANYL PF 250 MCG/5ML ONE (15:03)
[2020-10-25] MEDS ORDERED: MIDAZOLAM 1 MG/ML, 2ML ONE (15:03)
[2020-10-25 15:16] VITALS: BP 136/89
[2020-10-25] MEDS ORDERED: CHLORHEXIDINE 15 ML UDC ONE (15:18)
[2020-10-25] MEDS ORDERED: CHLORHEXIDINE 15 ML UDC PO ONE (15:30)
[2020-10-25] MEDS: ENOXAPARIN 40 MG/0.4 ML SQ SCH (18:00)
[2020-10-25] MEDS ORDERED: VANCOMYCIN 1,000 MG ONE (18:00)
[2020-10-25] MEDS ORDERED: TRANEXAMIC ACID 100 MG/ML, 10ML ONE (18:09)
[2020-10-25] MEDS ORDERED: ALBUTEROL SULFATE 2.5 MG/3 ML NPPB PRN (18:30)
[2020-10-25] MEDS ORDERED: FENTANYL PF 100 MCG/2ML IV PRN (18:30)
[2020-10-25] MEDS ORDERED: OXYcodone 5 MG/5 ML ORAL.SOL UDC PO PRN (18:30)
[2020-10-25] MEDS ORDERED: PROMETHAZINE 25 MG/ML, 1ML IVPush PRN (18:30)
[2020-10-25] MEDS ORDERED: MIDAZOLAM 1 MG/ML, 2ML IV PRN (18:30)
[2020-10-25] MEDS ORDERED: ACETAMINOPHEN 325 MG TABLET PO PRN (18:30)
[2020-10-25] MEDS ORDERED: MEPERIDINE/PF 25MG/0.5ML IVPush PRN (18:30)
[2020-10-25] MEDS ORDERED: LABETALOL 5MG/ML, 20ML IV PRN (18:30)
[2020-10-25] MEDS ORDERED: BUPIVACAINE/PF 0.25% ONE ×2 (19:16)
[2020-10-25] MEDS ORDERED: SUCCINYLCHOLINE 20 MG/ML, 10ML ONE (19:17)
[2020-10-25] MEDS ORDERED: PROPOFOL 10 MG/ML, 20ML ONE (19:17)
[2020-10-25] MEDS ORDERED: ONDANSETRON 2MG/ML, 2ML ONE (19:17)
[2020-10-25] MEDS ORDERED: LIDOCAINE-MPF 2% ,5ML ONE ×2 (19:17)
[2020-10-25] MEDS ORDERED: PROMETHAZINE 25 MG/ML, 1ML ONE (19:32)
[2020-10-25 20:30] VITALS: BP 107/72
[2020-10-26 00:40] VITALS: BP 102/61
[2020-10-26 04:08] VITALS: BP 105/67
[2020-10-26] MEDS: AMPICILLIN/SULBACTAM 3 GM in SODIUM CHLORIDE 0.9% 100 ML IV SCH ×4 (04:52→23:09)
[2020-10-26] MEDS: ENOXAPARIN 40 MG/0.4 ML SQ SCH ×2 (05:44→18:23)
[2020-10-26 05:48] LABS: BASOPHILS % (AUTO) 1 % (0-1); EOSINOPHILS % (AUTO) 1 % (1-7); LYMPHOCYTES % (AUTO) 13 % (22-44); MEAN CORPUSCULAR HEMOGLOBIN 29.8 pg (27.5-34.5); MEAN CORPUSCULAR HGB CONC 33.7 g/dL (33.2-36.2); MEAN PLATELET VOLUME 7.5 fL (7.4-10.4); MONOCYTES % (AUTO) 10 % (2-9); NEUTROPHILS % (AUTO) 75 % (42-75); PLATELET COUNT 276 x10^3/uL (130-400); RED BLOOD COUNT 3.44 x10^6/uL (4.38-5.82); RED CELL DISTRIBUTION WIDTH 14.9 % (9.4-14.8)
[2020-10-26 05:59] LABS: ANION GAP 6 mmol/L (5-15); CALCIUM 8.1 mg/dL (8.5-10.1); CHLORIDE 100 mmol/L (98-107)
[2020-10-26 06:03] LABS: CREATININE 1.64 mg/dL (0.7-1.3)
[2020-10-26 07:14] VITALS: BP 119/76
[2020-10-26] MEDS: INSULIN GLARGINE 100 UNITS/ML, PEN SQ-INSULIN SCH (07:53)
[2020-10-26] MEDS: ASPIRIN 81 MG TABLET EC PO SCH (07:53)
[2020-10-26] MEDS: INSULIN LISPRO 100 UNITS/ML, PEN SQ-INSULIN SCH ×4 (07:54→23:32)
[2020-10-26] MEDS: ACETAMINOPHEN 325 MG TABLET PO PRN ×2 (08:29→13:25)
[2020-10-26] MEDS: OXYcodone IR 5MG TABLET PO PRN ×4 (08:30→23:34)
[2020-10-26 14:09] VITALS: BP_SYST 110; BP_SYST 135; BP_DIAS 57; BP_DIAS 72
[2020-10-26 19:19] VITALS: BP 138/80
[2020-10-26] MEDS: MELATONIN 5 MG TABLET PO PRN (23:33)
[2020-10-27 00:38] VITALS: BP 114/72
[2020-10-27] MEDS: AMPICILLIN/SULBACTAM 3 GM in SODIUM CHLORIDE 0.9% 100 ML IV SCH ×4 (05:02→23:39)
[2020-10-27] MEDS: ENOXAPARIN 40 MG/0.4 ML SQ SCH ×2 (05:14→17:57)
[2020-10-27] MEDS: OXYcodone IR 5MG TABLET PO PRN ×5 (05:23→23:40)
[2020-10-27 05:59] LABS: ANION GAP 7 mmol/L (5-15); CALCIUM 7.9 mg/dL (8.5-10.1); CHLORIDE 101 mmol/L (98-107); CREATININE 1.64 mg/dL (0.7-1.3)
[2020-10-27 07:24] VITALS: BP 103/67
[2020-10-27 08:36] VITALS: BP 102/68
[2020-10-27] MEDS: ASPIRIN 81 MG TABLET EC PO SCH (09:30)
[2020-10-27] MEDS: INSULIN LISPRO 100 UNITS/ML, PEN SQ-INSULIN SCH ×3 (09:30→16:52)
[2020-10-27] MEDS: INSULIN GLARGINE 100 UNITS/ML, PEN SQ-INSULIN SCH (09:31)
[2020-10-27 10:00] LABS: BASOPHILS % (AUTO) 0 % (0-1); EOSINOPHILS % (AUTO) 2 % (1-7); LYMPHOCYTES % (AUTO) 15 % (22-44); MEAN CORPUSCULAR HEMOGLOBIN 29.4 pg (27.5-34.5); MEAN CORPUSCULAR HGB CONC 33.1 g/dL (33.2-36.2); MONOCYTES % (AUTO) 10 % (2-9); NEUTROPHILS % (AUTO) 72 % (42-75); PLATELET COUNT 272 x10^3/uL (130-400); RED BLOOD COUNT 3.62 x10^6/uL (4.38-5.82); RED CELL DISTRIBUTION WIDTH 15.3 % (9.4-14.8)
[2020-10-27] MEDS: ACETAMINOPHEN 325 MG TABLET PO PRN (14:02)
[2020-10-27 14:06] VITALS: BP 111/69
[2020-10-27 20:21] VITALS: BP 125/79
[2020-10-27] MEDS: MELATONIN 5 MG TABLET PO PRN (23:40)
[2020-10-28] MEDS: OXYcodone IR 5MG TABLET PO PRN ×5 (00:32→21:52)
[2020-10-28] MEDS: INSULIN LISPRO 100 UNITS/ML, PEN SQ-INSULIN SCH ×5 (00:46→21:36)
[2020-10-28 01:44] VITALS: BP 114/82
[2020-10-28] MEDS: ENOXAPARIN 40 MG/0.4 ML SQ SCH ×2 (06:22→17:53)
[2020-10-28] MEDS: AMPICILLIN/SULBACTAM 3 GM in SODIUM CHLORIDE 0.9% 100 ML IV SCH ×4 (06:23→23:03)
[2020-10-28 07:08] VITALS: BP 104/70
[2020-10-28] MEDS: ACETAMINOPHEN 325 MG TABLET PO PRN (08:36)
[2020-10-28] MEDS: ASPIRIN 81 MG TABLET EC PO SCH (08:36)
[2020-10-28] MEDS: INSULIN GLARGINE 100 UNITS/ML, PEN SQ-INSULIN SCH (08:37)
[2020-10-28 12:34] VITALS: BP 121/63
[2020-10-28] MEDS: DOCUSATE 100 MG CAPSULE PO PRN ×2 (13:23→21:52)
[2020-10-28] MEDS: POLYETHYLENE GLYCOL 17 GM PACKET PO PRN (13:24)
[2020-10-28 19:42] VITALS: BP 122/82
[2020-10-28] MEDS: MELATONIN 5 MG TABLET PO PRN (23:03)
[2020-10-29 01:48] VITALS: BP 136/82
[2020-10-29] MEDS: OXYcodone IR 5MG TABLET PO PRN ×5 (02:55→20:29)
[2020-10-29] MEDS: DOCUSATE 100 MG CAPSULE PO PRN ×2 (02:55→20:29)
[2020-10-29] MEDS: AMPICILLIN/SULBACTAM 3 GM in SODIUM CHLORIDE 0.9% 100 ML IV SCH ×4 (05:13→23:24)
[2020-10-29] MEDS: ENOXAPARIN 40 MG/0.4 ML SQ SCH ×2 (06:03→17:23)
[2020-10-29] MEDS: INSULIN LISPRO 100 UNITS/ML, PEN SQ-INSULIN SCH ×4 (06:05→20:41)
[2020-10-29 06:27] VITALS: BP 115/71
[2020-10-29] MEDS: INSULIN GLARGINE 100 UNITS/ML, PEN SQ-INSULIN SCH (08:35)
[2020-10-29] MEDS: ASPIRIN 81 MG TABLET EC PO SCH (08:35)
[2020-10-29] MEDS: POLYETHYLENE GLYCOL 17 GM PACKET PO PRN (08:59)
[2020-10-29 13:58] VITALS: BP 101/62
[2020-10-29 19:42] VITALS: BP 136/85
[2020-10-29] MEDS: ACETAMINOPHEN 325 MG TABLET PO PRN (20:29)
[2020-10-29] MEDS: MELATONIN 5 MG TABLET PO PRN (23:24)
[2020-10-30 02:35] VITALS: BP 121/80
[2020-10-30] MEDS: ACETAMINOPHEN 325 MG TABLET PO PRN ×3 (02:47→20:47)
[2020-10-30] MEDS: OXYcodone IR 5MG TABLET PO PRN ×4 (02:47→20:47)
[2020-10-30] MEDS: AMPICILLIN/SULBACTAM 3 GM in SODIUM CHLORIDE 0.9% 100 ML IV SCH ×4 (05:24→23:26)
[2020-10-30] MEDS: ENOXAPARIN 40 MG/0.4 ML SQ SCH ×2 (05:25→17:55)
[2020-10-30 05:32] LABS: BASOPHILS % (AUTO) 0 % (0-1); EOSINOPHILS % (AUTO) 4 % (1-7); LYMPHOCYTES % (AUTO) 24 % (22-44); MEAN CORPUSCULAR HEMOGLOBIN 29.4 pg (27.5-34.5); MEAN CORPUSCULAR HGB CONC 33.4 g/dL (33.2-36.2); MONOCYTES % (AUTO) 10 % (2-9); NEUTROPHILS % (AUTO) 61 % (42-75); PLATELET COUNT 324 x10^3/uL (130-400); RED BLOOD COUNT 3.28 x10^6/uL (4.38-5.82); RED CELL DISTRIBUTION WIDTH 15.2 % (9.4-14.8)
[2020-10-30 05:41] LABS: ALANINE AMINOTRANSFERASE 16 U/L (12-78); ALBUMIN 2.1 g/dL (3.4-5.0); ANION GAP 3 mmol/L (5-15); CALCIUM 8.5 mg/dL (8.5-10.1); CHLORIDE 102 mmol/L (98-107); CREATININE 1.22 mg/dL (0.7-1.3)
[2020-10-30 05:50] LABS: ALKALINE PHOSPHATASE 49 U/L (45-117); BILIRUBIN,TOTAL 0.2 mg/dL (0.2-1.0); TOTAL PROTEIN 8.2 g/dL (6.4-8.2)
[2020-10-30 06:18] LABS: HCT (SEDRATE) 28.9 % (39.2-51.8)
[2020-10-30] MEDS: INSULIN LISPRO 100 UNITS/ML, PEN SQ-INSULIN SCH ×4 (06:38→21:01)
[2020-10-30 07:26] VITALS: BP 144/96
[2020-10-30] MEDS: ASPIRIN 81 MG TABLET EC PO SCH (09:05)
[2020-10-30] MEDS: INSULIN GLARGINE 100 UNITS/ML, PEN SQ-INSULIN SCH (09:06)
[2020-10-30 13:45] VITALS: BP 114/72
[2020-10-30 19:18] VITALS: BP 142/76
[2020-10-30] MEDS: DOCUSATE 100 MG CAPSULE PO PRN (21:01)
[2020-10-30] MEDS: MELATONIN 5 MG TABLET PO PRN (23:26)
[2020-10-31 00:37] VITALS: BP 119/62
[2020-10-31] MEDS: ENOXAPARIN 40 MG/0.4 ML SQ SCH ×2 (05:54→17:40)
[2020-10-31] MEDS: OXYcodone IR 5MG TABLET PO PRN (05:54)
[2020-10-31] MEDS: ACETAMINOPHEN 325 MG TABLET PO PRN (05:54)
[2020-10-31] MEDS: AMPICILLIN/SULBACTAM 3 GM in SODIUM CHLORIDE 0.9% 100 ML IV SCH ×4 (05:54→23:18)
[2020-10-31] MEDS: INSULIN LISPRO 100 UNITS/ML, PEN SQ-INSULIN SCH ×4 (07:12→21:21)
[2020-10-31 07:34] VITALS: BP 135/88
[2020-10-31] MEDS: DOCUSATE 100 MG CAPSULE PO PRN (09:15)
[2020-10-31] MEDS: ASPIRIN 81 MG TABLET EC PO SCH (09:15)
[2020-10-31] MEDS: POLYETHYLENE GLYCOL 17 GM PACKET PO PRN (09:15)
[2020-10-31] MEDS: INSULIN GLARGINE 100 UNITS/ML, PEN SQ-INSULIN SCH (09:16)
[2020-10-31 13:49] VITALS: BP 141/90
[2020-10-31] MEDS ORDERED: POLY17PO5 PO (16:13)
[2020-10-31] MEDS ORDERED: LISI-170 PO (16:13)
[2020-10-31] MEDS ORDERED: INSU100I13 SQ-INSULIN (16:13)
[2020-10-31] MEDS ORDERED: OXYC5TAB98 PO (16:13)
[2020-10-31] MEDS ORDERED: INSU100I11 SQ-INSULIN (16:13)
[2020-10-31] MEDS ORDERED: DOCU-131 PO (16:13)
[2020-10-31] MEDS ORDERED: AMPI3VIA IV (16:13)
[2020-10-31 19:23] VITALS: BP 129/74
[2020-10-31] MEDS: MELATONIN 5 MG TABLET PO PRN (23:26)
[2020-11-01 01:51] VITALS: BP 133/79
[2020-11-01] MEDS: ENOXAPARIN 40 MG/0.4 ML SQ SCH (05:49)
[2020-11-01] MEDS: AMPICILLIN/SULBACTAM 3 GM in SODIUM CHLORIDE 0.9% 100 ML IV SCH ×2 (05:49→11:25)
[2020-11-01 07:47] VITALS: BP 144/92
[2020-11-01] MEDS: ASPIRIN 81 MG TABLET EC PO SCH (08:25)
[2020-11-01] MEDS: INSULIN GLARGINE 100 UNITS/ML, PEN SQ-INSULIN SCH (08:25)
[2020-11-01] MEDS: INSULIN LISPRO 100 UNITS/ML, PEN SQ-INSULIN SCH ×2 (08:25→11:26)
[2020-11-01] MEDS: ACETAMINOPHEN 325 MG TABLET PO PRN (10:11)
[2020-11-01 11:45] VITALS: BP 136/88
== END 2020-11-01 12:15 | DRG 853 ==
LOC: ED 07:11 → EDIP 11:51 → 3N 16:24 → 4NE 10-19 21:39
PROVIDERS: ADMIT Family Medicine; ATTEND Family Medicine
PROC: 0QBM0ZZ Excision of Left Tarsal, Open Approach (ICD-10-PCS; 2020-10-19)
PROC: 2W1TX6Z Compression of Left Foot using Pressure Dressing (ICD-10-PCS; 2020-10-19)
PROC: 0QBM0ZX Excision of Left Tarsal, Open Approach, Diagnostic (ICD-10-PCS; 2020-10-19 20:00)
PROC: 0SSJ0ZZ Reposition Left Tarsal Joint, Open Approach (ICD-10-PCS; 2020-10-25)
PROC: 0SGG0JZ Fusion of Left Ankle Joint with Synthetic Substitute, Open Approach (ICD-10-PCS; 2020-10-25)
PROC: 0SSGXZZ Reposition Left Ankle Joint, External Approach (ICD-10-PCS; 2020-10-25)
PROC: 0L8P0ZZ Division of Left Lower Leg Tendon, Open Approach (ICD-10-PCS; principal; 2020-10-25 16:30)
PROC: 02HV33Z Insertion of Infusion Device into Superior Vena Cava, Percutaneous Approach (ICD-10-PCS; 2020-10-26)
PROC: B518ZZA Fluoroscopy of Superior Vena Cava, Guidance (ICD-10-PCS; 2020-10-26)
PROC: B548ZZA Ultrasonography of Superior Vena Cava, Guidance (ICD-10-PCS; 2020-10-26)
DX: A41.9 Sepsis, unspecified organism (principal); E43 Unspecified severe protein-calorie malnutrition; Z68.43 Body mass index [BMI] 50.0-59.9, adult; L03.116 Cellulitis of left lower limb; M86.9 Osteomyelitis, unspecified; E11.40 Type 2 diabetes mellitus with diabetic neuropathy, unspecified; E11.621 Type 2 diabetes mellitus with foot ulcer; E11.628 Type 2 diabetes mellitus with other skin complications; E11.65 Type 2 diabetes mellitus with hyperglycemia; E11.69 Type 2 diabetes mellitus with other specified complication; E66.9 Obesity, unspecified; E78.5 Hyperlipidemia, unspecified; G47.33 Obstructive sleep apnea (adult) (pediatric); I10 Essential (primary) hypertension; Z20.822 Contact with and (suspected) exposure to COVID-19; K59.00 Constipation, unspecified; L97.519 Non-pressure chronic ulcer of other part of right foot with unspecified severity; S91.312A Laceration without foreign body, left foot, initial encounter; L97.529 Non-pressure chronic ulcer of other part of left foot with unspecified severity; Z83.3 Family history of diabetes mellitus; Y93.89 Activity, other specified; Y92.098 Other place in other non-institutional residence as the place of occurrence of the external cause; Y99.8 Other external cause status
CPT/HCPCS: 36415; 73620; 76000; 96365; 96366; 96367; 99285; J3490; 36573; 71045; 80048; 80053; 80061; 80202; 81001; 82550; 82962; 83036; 83605; 83735; 84100; 84443; 85025; 85651; 86140; 87040; 87070; 87075; 87077; 87147; 87186; 87205; 87635; 88307; 88311; 93005; C1713; G0378; J0295; J0878; J1335; J1650; J2250; J2405; J2543; J2550; J2704; J3010; J3370; A9575; C1751; C1769; J0330; J1815; J7040; Q4100

== ENCOUNTER 2020-11-24 11:42 | Outpatient (CLI) | payer MEDICAID ==
[~2020-11-24 11:42] MED LIST changes: +AMPI3VIA IV; +DOCU-131 PO; +INSU100I11 SQ-INSULIN; +INSU100I13 SQ-INSULIN; +LISI-170 PO; +OXYC5TAB98 PO; +POLY17PO5 PO
[2020-11-24] MEDS ORDERED: OXYC5CAP2 PO (12:45)
[2020-11-24] MEDS ORDERED: AMPI3VIA30 IV (12:45)
[2020-11-24] MEDS ORDERED: INSU100I13 SC (12:45)
[2020-11-24] MEDS ORDERED: OXYC1TAB18 PO (12:45)
[2020-11-24] MEDS ORDERED: INSU100I28 SC (12:45)
[2020-11-24] MEDS ORDERED: GABA300C PO (12:45)
[2020-11-24] MEDS ORDERED: INSU100C SQ-INSULIN (12:45)
[2020-11-24] MEDS ORDERED: ACET-2065 PO (12:45)
[2020-11-24] MEDS ORDERED: DOCU100T6 PO (12:45)
[2020-11-24] MEDS ORDERED: LISI-170 PO (12:45)
[2020-11-24] MEDS ORDERED: ATOR40TA78 PO (12:45)
[2020-11-24] MEDS ORDERED: POLY17PO5 PO (12:45)
== END 2020-11-24 23:59 | disposition home or self-care (01) ==
LOC: STAR 11:42
PROVIDERS: ATTEND Orthopaedic Surgery
DX: Z02.9 Encounter for administrative examinations, unspecified (principal)

== ENCOUNTER 2020-11-27 10:46 | Day surgery (SDC) | payer MEDICAID ==
[~2020-11-27] VITALS: Ht 180.3 cm; Wt 149.3 kg
[2020-11-27 11:31] VITALS: BP 143/87
== END 2020-11-27 16:00 | disposition home or self-care (01) ==
LOC: OUT 10:46
PROVIDERS: ATTEND Orthopaedic Surgery
DX: T84.213A Breakdown (mechanical) of internal fixation device of bones of foot and toes, initial encounter (principal); E11.622 Type 2 diabetes mellitus with other skin ulcer; G47.33 Obstructive sleep apnea (adult) (pediatric); E66.01 Morbid (severe) obesity due to excess calories; I10 Essential (primary) hypertension; Z68.41 Body mass index [BMI] 40.0-44.9, adult; Z20.822 Contact with and (suspected) exposure to COVID-19; Z79.899 Other long term (current) drug therapy; Y83.8 Other surgical procedures as the cause of abnormal reaction of the patient, or of later complication, without mention of misadventure at the time of the procedure
CPT/HCPCS: 11043; 20693; 73590; 82962; 93005; C1713; J0690; J1100; J2405; J2704; J3010; J7120; U0003; U0005